=== PATIENT | female | born 1940 | race Caucasian/White ===

== ENCOUNTER 2016-08-01 10:36 | Inpatient (IN) | payer MEDICARE, OTHER ==
[~2016-08-01] VITALS: Ht 162.6 cm; Wt 70.3 kg
[2016-08-01] MEDS ORDERED: NORVASC10 M1 PO (14:17)
[2016-08-01] MEDS ORDERED: PRILOSEC40 MG PO (14:19)
[2016-08-01] MEDS ORDERED: MEVACOR20 MG PO (14:19)
[2016-08-01] MEDS ORDERED: HALFPRIN81 MG PO (14:23)
[2016-08-01] MEDS ORDERED: CENTRUM SILVER1 EAC3 PO (14:23)
[2016-08-03] MEDS ORDERED: CIPRO250 MG PO (07:46)
[2016-08-03] MEDS ORDERED: FLAGYL500 MG PO (07:47)
== END 2016-08-03 09:20 | disposition short-term general hospital (02) | DRG 392 ==
LOC: INF/INJ 10:36 → IP 13:50
PROVIDERS: ADMIT Family Medicine
DX: K57.92 Diverticulitis of intestine, part unspecified, without perforation or abscess without bleeding (principal); I12.9 Hypertensive chronic kidney disease with stage 1 through stage 4 chronic kidney disease, or unspecified chronic kidney disease; N18.3 Chronic kidney disease, stage 3 (moderate); K21.9 Gastro-esophageal reflux disease without esophagitis; D17.22 Benign lipomatous neoplasm of skin and subcutaneous tissue of left arm; I73.9 Peripheral vascular disease, unspecified; R73.03 Prediabetes; N28.9 Disorder of kidney and ureter, unspecified
CPT/HCPCS: J0744; J8499; Q9963